=== PATIENT | female | born 1990 | race African-American/Black ===

== ENCOUNTER 2019-01-31 11:49 | Emergency (ER) | payer MEDICAID ==
[~2019-01-31] VITALS: Ht 157.5 cm; Wt 87.0 kg
[2019-01-31 15:08] VITALS: BP 120/66
== END 2019-01-31 15:09 | disposition home or self-care (01) ==
LOC: ER 11:49
DX: B34.9 Viral infection, unspecified (principal); R09.82 Postnasal drip; Z88.1 Allergy status to other antibiotic agents
CPT/HCPCS: 99283